=== PATIENT | female | born 1980 | race Two or more races ===

== ENCOUNTER 2023-11-12 02:40 | Emergency (ER) | payer MEDICARE, MEDICAID ==
[~2023-11-12] VITALS: Ht 177.8 cm; Wt 126.5 kg
[2023-11-12 03:10] LABS: Basophils # (auto) 0.1 10 ^3/uL (0-0.2); Eosinophils # (auto) 0.1 10 ^3/uL (0-0.8); Lymphocytes # (auto) 2.3 10 ^3/uL (0.4-5.4); Nucleated Red Blood Cells % 0.1 %; Red Cell Distribution Width 16.9 % (11.8-14.3)
[2023-11-12 03:11] LABS: Basophils % (auto) 0.7 % (0.0-2.0); Eosinophils % (auto) 1.2 % (0.0-7.0); Hematocrit 25.1 % (36.0-46.0); Hemoglobin 7.9 g/dL (12.2-16.2); Lymphocytes % (auto) 30.9 % (10.0-50.0); Mean Corpuscular Hemoglobin 20.5 pg (28.0-32.0); Mean Corpuscular Hgb Conc. 31.4 g/dL (32.0-36.0); Mean Corpuscular Volume 65.3 fL (80.0-100.0); Monocytes # (auto) 0.5 10 ^3/uL (0-1.3); Monocytes % (auto) 6.7 % (0.0-12.0); Neutrophils # (auto) 4.6 10 ^3/uL (1.6-8.6); Neutrophils % (auto) 60.5 % (37.0-80.0); Platelet Count (auto) 518 10^3/uL (140-450); Red Blood Cells 3.85 10^6/uL (4.0-5.20); White Blood Cell 7.5 10^3/uL (4.4-10.8)
[2023-11-12 03:11] LABS: Urine Bacteria None Seen /hpf (None Seen)
[2023-11-12 03:19] LABS: Chloride 110 mmol/L (98-107); Potassium 3.6 mmol/L (3.5-5.1); Sodium 142 mmol/L (136-145)
[2023-11-12 03:20] LABS: Anion Gap 4 (5-15); Calcium 8.8 mg/dL (8.7-10.4); Carbon Dioxide 28 mmol/L (20-31)
[2023-11-12 03:24] LABS: INR 1.01 (0.9-1.15); Partial Thromboplastin Time 24.3 SEC (24.5-34.5); Prothrombin Time 10.7 sec (9.3-11.8)
[2023-11-12 03:25] LABS: Glucose 94 mg/dL (74-106)
[2023-11-12 03:26] LABS: Urine Blood 2+ /uL (Negative); Urine Clarity Clear (Clear); Urine Color Light-Yellow (Yellow); Urine Protein, UAD Negative (Negative); Urine Specific Gravity 1.018 (1.001-1.035); Urine Urobilinogen 3 mg/dL (Negative); Urine WBC <1 /hpf (0 - 5)
[2023-11-12 03:31] LABS: BUN/Creatinine Ratio 5.2 (10.0-20.0); Blood Urea Nitrogen < 5 mg/dL (9-23)
[2023-11-12 03:32] LABS: Hypochromia Moderate
[2023-11-12 03:34] LABS: Large Platelets FEW; Ovalocytes FEW; Platelet Estimate Increa; Stomatocytes Few
[2023-11-12] MEDS ORDERED: FERR1TAB36 PO (05:24)
[2023-11-12] MEDS ORDERED: MEDR10TA9 PO (05:24)
[2023-11-12 06:08] VITALS: BP 115/60; PULSE 67; RESP 16; TEMP 98; O2SAT 100
== END 2023-11-12 06:10 | disposition home or self-care (01) ==
LOC: ER 02:40
DX: O20.9 Hemorrhage in early pregnancy, unspecified (principal); O26.891 Other specified pregnancy related conditions, first trimester; R10.2 Pelvic and perineal pain; D64.9 Anemia, unspecified
CPT/HCPCS: 36415; 76830; 76856; 80048; 81001; 84702; 85025; 85610; 85730

== ENCOUNTER 2024-03-22 03:35 | Emergency (ER) | payer MEDICARE, MEDICAID, OTHER ==
[~2024-03-22] VITALS: Ht 180.3 cm; Wt 122.9 kg
[~2024-03-22 03:35] MED LIST: FERR1TAB36 PO; MEDR10TA9 PO
[2024-03-22 04:25] VITALS: BP 119/87; PULSE 69; RESP 20; TEMP 98.4; O2SAT 100
[2024-03-22] MEDS ORDERED: NAP500T PO (04:50)
[2024-03-22] MEDS ORDERED: CYCL-837 PO (04:50)
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
[2024-03-22] MEDS: KETOROLAC TROMETH 60MG/2ML VIAL IM ONE (05:04)
== END 2024-03-22 05:03 | disposition home or self-care (01) ==
LOC: ER 03:35
DX: M62.838 Other muscle spasm (principal); M79.605 Pain in left leg; M79.604 Pain in right leg; Z79.899 Other long term (current) drug therapy; Z79.3 Long term (current) use of hormonal contraceptives
CPT/HCPCS: 96372; 99283; J1885